=== PATIENT | male | born 1975 | race Caucasian/White ===

== ENCOUNTER 2019-10-26 22:36 | Emergency (ER) | payer MEDICAID, SELFPAY ==
[2019-10-26 22:50] VITALS: BP 110/92; PULSE 52; RESP 18; TEMP 36.6; O2SAT 100; BMI 27.1
--- NOTE | 2019-10-26 22:52 | ECG_ITS ---
Measurements Intervals [place] Rate: 52 P: 63 MA: 146 QRS: 70 QRSD: 109 T: 59 QT: 405 QTc: 379 SINUS BRADYCARDIA Compared to ECG 04/18/2017 12:33:39 Sinus arrhythmia no longer present Electronically Signed On 10-31-2019 13:42:22 CDT by Mercedes Yanez M.D. [email or web address]
--- NOTE | 2019-10-26 22:52 | XR_ITS ---
WS: [id number] PORTABLE CHEST HISTORY: CP COMPARISON: 04/18/2017 Lungs are clear and well expanded. No pleural effusion or pneumothorax. Cardiac size: Normal. Mediastinum/Aorta: Normal mediastinum. No osseous abnormality seen. XR/XR chest 1V portable [id number] IMPRESSION: Unremarkable portable chest.
--- NOTE | 2019-10-26 22:54 | ED_ITS ---
HPI - Chest Pain General: Chief Complaint: Chest Pain Stated Complaint: chest pain Time Seen by Provider: 10/26/19 22:44 History of Present Illness: HPI narrative: Patient arrived via ambulance from the [facility] with complaint of chest pain that was sharp started in his left chest went up his neck and down his left arm. Patient said it was about 1945 when it started. He received 2 nitro in the ambulance and oxygen he said his pain is pretty much gone now. He likens it to his past for heart attacks from cocaine use he says. MD complaint: chest pain and chest heaviness Pertinent past history: prior RI (Cocaine use per patient) Onset (ago): hour(s) Timing of current episode: episodic and now resolved Prior episodes: Yes Onset: during rest Pain location: left chest Pain radiation: left arm and neck Severity: mild Quality: heaviness and sharp Relieving factors: nitroglycerin Exacerbating factors: nothing Associated symptoms: Reports vomiting (X1); Deny dyspnea or fever(s) Review of Systems Const: Denies: fever, chills or body aches Eyes: Denies: change in vision or blurry vision ENMT: Denies: throat pain or nasal congestion Card: Reports: chest pain; Denies: shortness of breath on exertion Resp: Denies: shortness of breath, productive cough or non-productive cough GI: Reports: vomiting (X1) : Denies: difficulty urinating Musc: Denies: extremity pain Skin/Breast: Denies: rash Neuro: Denies: headache Psych: Denies: anxiety or depression Eduardo/Lymph: Denies: easy bruising PFS ED PFSH: Medical History (Updated 10/27/19 @ 00:02 by SUZY Morales) Bipolar disorder Chronic back pain Chronic post-traumatic stress disorder (PTSD) 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 Hypertension Surgical History (Updated 10/08/19 @ 14:24 by RUKHSANA CooperC) History of left heart catheterization July 2019 in [place] History of tonsillectomy History of umbilical hernia repair Family History (Updated 10/08/19 @ 13:52 by SHEN Richard) Other Cancer Dementia Diabetes Heart disease Hypertension Stroke Social History (Updated 10/08/19 @ 13:53 by SHEN Richard) Smoking and tobacco status: never smoked Second hand smoke exposure: No Smoking risk assessment/counseling performed?: No Alcohol intake: former Desire information about alcohol rehabilitation?: No Counseling given: No Desire information about substance/drug rehabilitation?: No Counseling given: No Adopted: No Caregiver/support person: Yes (nursing home) Lives independently: No Household members: other Details: nursing home Marital status: Number of children: 0 service: No Current occupational status: unemployed Current occupational exposures/hazards: No Pets and animals: No History of recent travel: No Current gender identity: Male Physical Exam Const: COMMON NORMALS: no apparent distress, average body habitus and oriented x3 HENMT: COMMON NORMALS: normocephalic HEAD & SCALP: normal to inspection and normocephalic FACE & SINUS: normal facial exam Eye: COMMON NORMALS: conjunctivae normal GENERAL EYE: normal appearance of both eyes CONJUNCTIVA: Yes conjunctivae normal Neck/C-Spine: COMMON NORMALS: no JVD Chest: COMMONS NORMALS: inspection of chest normal Resp: COMMON NORMALS: normal respiratory effort and clear to auscultation bilaterally AUSCULTATION: clear to auscultation bilaterally Cardio: COMMON NORMALS: no JVD, regular rate and regular rhythm RATE: regular rate RHYTHM: regular rhythm GI: COMMON NORMALS: normal to inspection, nondistended, normoactive bowel sounds Extremity: COMMON NORMALS: normal to inspection and full ROM Neuro: COMMON NORMALS: oriented x3 Course Vital Signs: Vital signs: Vital Signs Temperature 97.8 F 10/26/19 22:50 Pulse Rate 52 L 10/26/19 22:50 Respiratory Rate 18 10/26/19 22:50 Blood Pressure 110/92 10/26/19 22:50 Pulse Oximetry 100 10/26/19 22:50 MDM - Chest Pain MDM Narrative: Medical decision making narrative: Patient is making decision to leave AGAINST MEDICAL ADVICE. It was explained to him the risk of of leaving before given his second troponin test. This discussed chest pain shortness of breath cardiac events. Patient states that he feels not his heart that he feels good leaving and does want to leave and go home. Patient signed AMA form with nurse at side as witness. Patient will is provided with all necessary information to make this decision. Lab Data: Labs: Lab Results 10/26/19 10/26/19 10/26/19 Range/Units 23:14 23:14 23:14 WBC 7.1 (4.0-10.0) 10^3/ uL RBC 5.12 (4.1-5.3) 10^6/u L Hgb 15.2 (11.7-16.6) g/dL Hct 45.3 (42.0-52.0) % MCV 88.5 (80-94) fL MCH 29.7 (28.0-34.0) pg MCHC 33.6 (30.0-36.0) g/dL RDW 11.8 L (12.1-15.1) % Plt Count 279 (130-400) 10^3/c mm MPV 9.4 (7.4-10.4) fL Neut % (Auto) 55.4 % Lymph % (Auto) 33.1 % [place] % (Auto) 8.5 % Eos % (Auto) 2.2 % Baso % (Auto) 0.7 % Neut # (Auto) 4.0 (1.8-7.7) 10^3/u L Lymph # (Auto) 2.4 (0.8-4.8) 10^3/u L [place] # (Auto) 0.6 (0.2-0.9) 10^3/u L Eos # (Auto) 0.2 (0.0-0.8) 10^3/u L Baso # (Auto) 0.1 (0.0-0.1) 10^3/u L Nucleated RBC % (a uto) 1.3 % Nucleated RBCs # 0.1 /100WBC PT 12.60 (10.5-13.3) SECO NDS INR 0.92 (0.8-1.2) Sodium (136-145) mmol/L Potassium (3.5-5.1) mmol/L Chloride (98-107) mmol/L Carbon Dioxide (22-29) mmol/L Anion Gap (5-19) BUN (6-20) mg/dL Creatinine (0.7-1.2) mg/dL GFR Calculation (90-130) mL/min Glucose (65-115) mg/dL Calculated Osmolal ity (285-295) mOsm/k g Calcium (8.5-10.5) mg/dL Total Bilirubin (0.15-1.2) mg/dL AST (0-40) U/L ALT (0-41) U/L Alkaline Phosphata se (40-130) IU/L Troponin T Baselin e 6 (0-15) ng/mL Total Protein (6.6-8.7) g/dL Albumin (3.5-5.2) g/dL Globulin (1.3-4.6) g/dL 10/26/19 Range/Units 23:14 WBC (4.0-10.0) 10^3/ uL RBC (4.1-5.3) 10^6/u L Hgb (11.7-16.6) g/dL Hct (42.0-52.0) % MCV (80-94) fL MCH (28.0-34.0) pg MCHC (30.0-36.0) g/dL RDW (12.1-15.1) % Plt Count (130-400) 10^3/c mm MPV (7.4-10.4) fL Neut % (Auto) % Lymph % (Auto) % [place] % (Auto) % Eos % (Auto) % Baso % (Auto) % Neut # (Auto) (1.8-7.7) 10^3/u L Lymph # (Auto) (0.8-4.8) 10^3/u L [place] # (Auto) (0.2-0.9) 10^3/u L Eos # (Auto) (0.0-0.8) 10^3/u L Baso # (Auto) (0.0-0.1) 10^3/u L Nucleated RBC % (a uto) % Nucleated RBCs # /100WBC PT (10.5-13.3) SECO NDS INR (0.8-1.2) Sodium 142 (136-145) mmol/L Potassium 4.4 (3.5-5.1) mmol/L Chloride 103 (98-107) mmol/L Carbon Dioxide 30 H (22-29) mmol/L Anion Gap 13.4 (5-19) BUN 12 (6-20) mg/dL Creatinine 1.0 (0.7-1.2) mg/dL GFR Calculation 80.4 L (90-130) mL/min Glucose 80 (65-115) mg/dL Calculated Osmolal ity 289 (285-295) mOsm/k g Calcium 9.8 (8.5-10.5) mg/dL Total Bilirubin 0.3 (0.15-1.2) mg/dL AST 32 (0-40) U/L ALT 43 H (0-41) U/L Alkaline Phosphata se 108 (40-130) IU/L Troponin T Baselin e (0-15) ng/mL Total Protein 7.3 (6.6-8.7) g/dL Albumin 4.7 (3.5-5.2) g/dL Globulin 2.6 (1.3-4.6) g/dL Discharge Plan Discharge Patient Disposition: Left Against Medical Advice Clinical Impression: Atypical chest pain Condition: Stable Prescriptions: No Action aspirin [Aspir-Low] 81 mg tablet,delayed release (DR/EC) 81 mg PO DAILY RF: 0 atorvastatin 80 mg tablet 80 mg PO DAILY Qty: 30 RF: 2 metoprolol tartrate 25 mg tablet 25 mg PO BID Qty: 60 RF: 2 oxcarbazepine [Trileptal] 300 mg tablet 300 mg PO BID Qty: 60 RF: 2 gabapentin 300 mg capsule 300 mg PO TID Qty: 90 RF: 2 nitroglycerin 2.5 mg capsule, extended release 2.5 mg PO Q12H Qty: 60 RF: 2 Discharge Orders: Discharge Order (Routine); Ordered 10/27/19 Ordered By: Homero Griffin Referrals: Jamin Jauregui MD [Family Provider] - Discharge Diet: Usual diet Discharge Activity: Resume usual activity Patient Instructions: Chest Pain (ED) Activity Restrictions/Additional Instructions: Get establish primary care here and get a referral to doormaker for follow- up. Any chest pain shortness of breath heaviness are similar symptoms in the past you have had with your post RI heart attacks return here or follow-up at your nearest emergency department take medicine as you are prescribed Coding Level of Care Code ED Underlay Stitcher for John Fwlori Exam Comprehensive
[2019-10-26 23:20] LABS: Basophils # 0.1 10^3/uL (0.0-0.1); Basophils % 0.7 %; Eosinophils # 0.2 10^3/uL (0.0-0.8); Eosinophils % 2.2 %; Hematocrit 45.3 % (42.0-52.0); Hemoglobin 15.2 g/dL (11.7-16.6); Lymphocytes # 2.4 10^3/uL (0.8-4.8); Lymphocytes % 33.1 %; Mean Corpuscular HGB Conc 33.6 g/dL (30.0-36.0); Mean Corpuscular Hemoglobin 29.7 pg (28.0-34.0); Mean Corpuscular Volume 88.5 fL (80-94); Mean Platelet Volume 9.4 fL (7.4-10.4); Monocytes # 0.6 10^3/uL (0.2-0.9); Monocytes % 8.5 %; Neutrophils % 55.4 %; Nucleated Red Blood Cells # 0.1 /100WBC; Nucleated Red Blood Cells % 1.3 %; Platelet Count 279 10^3/cmm (130-400); Red Blood Count 5.12 10^6/uL (4.1-5.3); Red Cell Distribution Width 11.8 % (12.1-15.1); White Blood Count 7.1 10^3/uL (4.0-10.0)
[2019-10-26 23:47] LABS: Alanine Aminotransferase 43 U/L (0-41); Albumin Level 4.7 g/dL (3.5-5.2); Alkaline Phosphatase 108 IU/L (40-130); Anion Gap 13.4 (5-19); Aspartate Amino Transferase 32 U/L (0-40); Blood Urea Nitrogen 12 mg/dL (6-20); Calcium 9.8 mg/dL (8.5-10.5); Carbon Dioxide 30 mmol/L (22-29); Chloride 103 mmol/L (98-107); Globulin 2.6 g/dL (1.3-4.6); Glomerular Filtration Rate 80.4 mL/min (90-130); Glucose 80 mg/dL (65-115); Osmolality Calculated 289 mOsm/kg (285-295); Potassium 4.4 mmol/L (3.5-5.1); Sodium 142 mmol/L (136-145); Total Bilirubin 0.3 mg/dL (0.15-1.2); Total Protein 7.3 g/dL (6.6-8.7); Troponin(5th) Baseline 6 ng/mL (0-15)
[2019-10-26 23:54] LABS: INR 0.92 (0.8-1.2)
[2019-10-27 00:16] VITALS: BP 120/75; PULSE 55; RESP 16; O2SAT 99
--- NOTE | 2019-10-27 00:24 | PC.NURSE ---
RN reviewed and agrees with assessment
== END 2019-10-27 00:16 | disposition left against medical advice (07) ==
PROVIDERS: Emergency Provider Nurse Practitioner Family; Family Provider Family Medicine
DX: R07.89 Other chest pain (principal); I10 Essential (primary) hypertension; I25.2 Old myocardial infarction; Z79.82 Long term (current) use of aspirin; Z53.29 Procedure and treatment not carried out because of patient's decision for other reasons
CPT/HCPCS: 12345; 71045; 80053; 84484; 85025; 85610; 93005; 99282; 99283

== ENCOUNTER → 2019-11-14 08:07 | Outpatient (BNVA) | payer MEDICAID, SELFPAY | PROVIDERS: Family Provider Family Medicine; Visit Provider Counselor Mental Health | DX: F43.12 Post-traumatic stress disorder, chronic (principal); F31.9 Bipolar disorder, unspecified | CPT/HCPCS: 90834 ==

== ENCOUNTER → 2019-11-21 08:36 | Outpatient (BNVA) | payer MEDICAID, SELFPAY | PROVIDERS: Family Provider Family Medicine; Visit Provider Counselor Mental Health | DX: F43.12 Post-traumatic stress disorder, chronic (principal); F41.1 Generalized anxiety disorder | CPT/HCPCS: 90834 ==

== ENCOUNTER → 2019-12-04 12:22 | Outpatient (BNVA) | payer MEDICAID, SELFPAY | PROVIDERS: Family Provider Family Medicine; Visit Provider Psychiatry & Neurology Psychiatry | DX: F43.12 Post-traumatic stress disorder, chronic (principal); F31.9 Bipolar disorder, unspecified; E63.9 Nutritional deficiency, unspecified; F34.9 Persistent mood [affective] disorder, unspecified; F15.11 Other stimulant abuse, in remission; Z87.820 Personal history of traumatic brain injury | CPT/HCPCS: 99215 ==

== ENCOUNTER → 2019-12-17 07:50 | Outpatient (BNVA) | payer MEDICAID, SELFPAY | PROVIDERS: Family Provider Family Medicine; Visit Provider Psychiatry & Neurology Psychiatry | DX: Z71.9 Counseling, unspecified (principal); F41.1 Generalized anxiety disorder | CPT/HCPCS: 99211; G0463 ==

== ENCOUNTER → 2020-05-27 08:34 | Outpatient (BNVA) | payer MEDICAID, SELFPAY | PROVIDERS: Family Provider Family Medicine; Visit Provider Counselor Mental Health | DX: F31.32 Bipolar disorder, current episode depressed, moderate (principal) | CPT/HCPCS: 90832 ==

== ENCOUNTER → 2020-06-01 09:09 | Outpatient (BNVA) | payer MEDICAID, SELFPAY | PROVIDERS: Family Provider Family Medicine; Visit Provider Nurse Practitioner Psychiatric/Mental Health | DX: F34.9 Persistent mood [affective] disorder, unspecified (principal); F43.12 Post-traumatic stress disorder, chronic; F15.11 Other stimulant abuse, in remission; F33.1 Major depressive disorder, recurrent, moderate | CPT/HCPCS: 99212 ==

== ENCOUNTER 2020-08-02 19:07 | Emergency (ER) | payer MEDICAID, SELFPAY ==
--- NOTE | 2020-08-02 19:11 | XRR_ITS ---
PROCEDURE INFORMATION: Exam: XR Chest, 1 View Exam date and time: 08/02/2020 7:41 PM Age: 45 years old Clinical indication: Cough and shortness of breath TECHNIQUE: Imaging protocol: XR of the chest Views: 1 view. COMPARISON: CR XR chest 1V portable [id number] 10/26/2019 11:13 PM FINDINGS: Lungs: No acute airspace disease. Pleural space: No pleural effusion. Heart/Mediastinum: Epicardial fat, without cardiomegaly. Bones/joints: Unremarkable. XR/XR chest 1V portable [id number] IMPRESSION: No acute airspace or pleural disease.
[2020-08-02 19:20] VITALS: BP 135/80; PULSE 71; RESP 18; TEMP 36.7; O2SAT 98; BMI 28.1
--- NOTE | 2020-08-02 19:42 | ED_ITS ---
HPI - COVID General: Chief Complaint: COVID symptoms Stated Complaint: cough/sob/nausea/covid symptoms Time Seen by Provider: 08/02/20 19:30 Source: patient Mode of arrival: ambulatory Limitations: no limitations Triage information: Has fever, cough or shortness of breath . No known COVID + exposure last 14 days History of Present Illness: HPI Narrative: 45-year-old male states over the last 10 days he has had cough body aches some chills. He denies any fevers. Patient states he was exposed to Covid at work. Patient is in no distress here and denies any shortness of breath. Denies any weakness he has had some nausea. COVID 19 common symptoms: positive chills, non-productive cough and body aches; negative headache(s), throat pain, nausea, vomiting or diarrhea COVID 19 other sytmptoms: negative chest pain COVID Results: No Data to Display Review of Systems Const: Reports: chills and body aches Eyes: Denies: blurry vision or eye discomfort ENMT: Denies: throat pain or dental pain Card: Denies: chest pain Resp: Reports: non-productive cough GI: Denies: abdominal pain, nausea, vomiting or diarrhea : Denies: dysuria Musc: Denies: neck pain or back pain Skin/Breast: Denies: rash Neuro: Denies: headache(s) Psych: Denies: depression Eduardo/Lymph: Denies: easy bruising All/Imm: Denies: urticaria PFSH ED PFSH: Medical History (Updated 08/02/20 @ 19:42 by Enoc Dumont MD) Atypical chest pain Bipolar disorder Chronic back pain Chronic post-traumatic stress disorder (PTSD) 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 Hypertension Surgical History History of left heart catheterization July 2019 in [place] History of tonsillectomy History of umbilical hernia repair Family History Other Cancer Dementia Diabetes Heart disease Hypertension Stroke Social History (Updated 12/02/19 @ 11:15 by Marii Long RN) Smoking and tobacco status: never smoked Second hand smoke exposure: No Smoking risk assessment/counseling performed?: No Alcohol intake: former Desire information about alcohol rehabilitation?: No Counseling given: No Desire information about substance/drug rehabilitation?: No Counseling given: No Adopted: No Caregiver/support person: Yes (skilled nursing) Lives independently: No Household members: other Details: skilled nursing Marital status: Number of children: 0 service: No Current occupational status: unemployed Current occupational exposures/hazards: No Pets and animals: No History of recent travel: No Current gender identity: Male Physical Exam Const: COMMON NORMALS: no acute distress, patient oriented x3 and healthy appearing HENMT: COMMON NORMALS: normocephalic and atraumatic HEAD & SCALP: normocephalic and atraumatic Eye: COMMON NORMALS: Equal, round and reactive pupils present and EOMs intact bilaterally PUPIL: Yes Equal, round and reactive pupils present Neck/C-Spine: COMMON NORMALS: full ROM and supple Chest: COMMONS NORMALS: normal inspection of the chest and normal palpation of entire chest wall Resp: COMMON NORMALS: normal respiratory effort, No retractions, No use of accessory muscles and clear to auscultation bilaterally AUSCULTATION: clear to auscultation bilaterally Cardio: COMMON NORMALS: regular rate, regular rhythm and No murmurs present (Cardio) RATE: regular rate RHYTHM: regular rhythm GI: COMMON NORMALS: Normal to inspection, nondistended, normoactive bowel sounds present, Soft to palpation, non-tender and no masses PALPATION: Yes Soft to palpation Extremity: COMMON NORMALS: normal to inspection and full ROM Neuro: COMMON NORMALS: patient oriented x3, moves all extremities and no focal motor deficits Psych: COMMON NORMALS: mental status grossly normal, Normal thought process present and cooperative THOUGHT PROCESS: Normal thought process present Skin: COMMON NORMALS: no rashes or lesions noted and no wounds GENERAL SKIN EXAM: no rashes or lesions noted Course Vital Signs: Vital signs: Vital Signs Temperature 98.0 F 08/02/20 19:20 Pulse Rate 71 08/02/20 19:20 Respiratory Rate 18 08/02/20 19:20 Blood Pressure 135/80 08/02/20 19:20 Pulse Oximetry 98 08/02/20 19:20 MDM - COVID MDM Narrative: Medical decision making narrative: Patient presents here with Covid-like symptoms and he is concerned he may have Covid. X-ray here shows no signs of pneumonia he has no signs of serious illness and vital signs are normal. We will do a Covid swab and patient is stable for discharge. He is to return if worsening. He understands and agrees to plan. Imaging Data: CXR: Attestation: I personally reviewed and interpreted this imaging study as follows: My impression: No acute abnormality COVID Results: No Data to Display Discharge Plan Discharge Patient Disposition: Home Clinical Impression: Suspected severe acute respiratory syndrome coronavirus 2 (SARS-CoV-2) infection, Suspected 2019-nCoV infection Condition: Stable Prescriptions: No Action isosorbide mononitrate 30 mg tablet extended release 24 hr 30 mg PO DAILY 30 Days Qty: 30 RF: 3 mirtazapine [Remeron] 15 mg tablet 7.5 mg PO .HS Qty: 15 RF: 0 hydroxyzine pamoate 25 mg capsule 25 mg PO BID PRN (Reason: anxiety) Qty: 60 RF: 0 lithium carbonate 150 mg capsule 450 mg PO .q hs Qty: 90 RF: 0 metoprolol tartrate 25 mg tablet 25 mg PO BID Qty: 60 RF: 2 aspirin [Adult Aspirin Regimen] 81 mg tablet,delayed release (DR/EC) 81 mg PO DAILY RF: 0 atorvastatin 20 mg tablet 20 mg PO DAILY RF: 0 pantoprazole 40 mg tablet,delayed release (DR/EC) 40 mg PO DAILY RF: 0 lisinopril [Zestril] 2.5 mg tablet 2.5 mg PO DAILY RF: 0 levothyroxine 50 mcg capsule 50 mcg PO DAILY RF: 0 sofosbuvir-velpatasvir [Epclusa] 400-100 mg tablet 1 tab PO DAILY 84 Days Qty: 28 RF: 2 Discharge Orders: Discharge ED (Routine); Ordered 08/02/20 Ordered By: Enoc Dumont Referrals: Jamin Jauregui MD [Primary Care Provider] - 1-3 days Discharge Diet: Advance as tolerated Discharge Activity: Resume usual activity Patient Instructions: Upper Respiratory Infection (ED) Coding Level of Care Code ED Political Anthropologist for John Jacobs
[2020-08-02 20:23] VITALS: O2SAT 98
[2020-08-03 17:04] LABS: Coronavirus Test Green County DETECTED
== END 2020-08-02 20:20 | disposition home or self-care (01) ==
PROVIDERS: Emergency Provider Emergency Medicine; PCP Family Medicine
DX: Z79.82 Long term (current) use of aspirin (principal); I10 Essential (primary) hypertension; U07.1 COVID-19
CPT/HCPCS: 12345; 71045; 87635; 99281; 99283

== ENCOUNTER 2020-09-24 08:13 | Outpatient (CLI) | payer MEDICAID, SELFPAY ==
--- NOTE | 2020-09-24 08:19 | FL_ITS ---
WS: [id number] ESOPHAGRAM WITH FLUOROSCOPY HISTORY: NONTOXIC MULTINODULAR GOITER COMPARISON: None available. FLUOROSCOPY TIME: 0.7 minutes. Esophagus and swallowing function: Barium was swallowed without difficulty. No strictures or signific ant mucosal abnormalities are identified within the esophagus. There is very mild dysmotility in the mid to distal esophagus. No delay in emptying of esophagus. No hernia or reflux. No aspiration. There is mild encroachment upon the posterior esophagus by small vertebral body osteophytes. Gastroesophageal reflux: None. Hiatal hernia: No hiatal hernia. FL/FL barium swallow [id number] IMPRESSION: 1. No strictures or significant mucosal lesions are noted within the esophagus . 2. No aspiration.
--- NOTE | 2020-09-24 08:19 | CT_ITS ---
WS: [id number] CT NECK WITH CONTRAST HISTORY: NONTOXIC MULTINODULAR GOITER TECHNIQUE: Contiguous 5 mm axial images are performed through the neck with intravenous contrast. Sag ittal and coronal reformats are also submitted. All CT scans at [facility] use at least o ne of these dose optimization techniques: automated exposure control; mA and/or kV adjustment per pat ient size (includes targeted exams where dose is matched to clinical indication); or iterative recons truction. CONTRAST: CONTRAST: Omnipaque 300; 95 mL IV. DLP: 2068.23 mGycm COMPARISON: None available. There is moderate thickening and nodularity along the anterior parapharyngeal mucosa just above the l evel of the epiglottic free margin. There is mild extension of the parapharyngeal lobulated soft tiss ue extending along the RIGHT epiglottic free margin. Seen only on the breath-hold images is a 5 mm no dule in the LEFT vallecula. No additional abnormalities are noted within the larynx. Torus tubarius and fossa of Rosenmuller and parapharyngeal fat are normal. Small bilateral cervical chain lymph nodes. Numerous cervical chain lymph nodes are identified. These lymph nodes are not enlarged. The largest measuring 8 mm at level 2. No thyroid enlargement. 5 mm mid RIGHT thyroid nodule. Parotid glands and submandibular glands are ne gative. Mild degenerative disc disease at C5-6. Visualized portions of the skull base demonstrate no abnormalities. Orbits and globes are within norm al limits. No soft tissue masses. Visualized paranasal sinuses and mastoid air cells are normal. Lung apices are clear. CT/CT neck w con* [id number] IMPRESSION: 1. Nodular lobulated soft tissue in the anterior parapharyngeal mucosal space extending along the LEFT free edge of the epiglottis is more than typically see n. Small papillomas are not excluded. Direct visualization recommended. 2. Seen only on the breath hold image is a 5 mm nodule in the LEFT vallecula. This should be further evaluated on direct visualization. 3. Subcentimeter RIGHT thyroid nodule. 4. No adenopathy. Numerous small cervical chain lymph nodes are subcentimeter.
[2020-09-24] MEDS: iohexol 300 mg/mL 100 mL Btl IV (08:43)
== END 2020-09-24 08:14 | disposition home or self-care (01) ==
LOC: RADWPI 08:17
PROVIDERS: PCP Nurse Practitioner Family; Visit Provider Specialist
DX: E04.2 Nontoxic multinodular goiter (principal); E04.1 Nontoxic single thyroid nodule
CPT/HCPCS: 70491; 74220; Q9967

== ENCOUNTER → 2020-09-27 08:00 | Outpatient (BNVA) | payer MEDICAID, SELFPAY | PROVIDERS: PCP Nurse Practitioner Family; Visit Provider Nurse Practitioner Psychiatric/Mental Health | DX: Z03.89 Encounter for observation for other suspected diseases and conditions ruled out (principal); Z79.899 Other long term (current) drug therapy | CPT/HCPCS: 99213 ==

== ENCOUNTER → 2020-09-28 09:36 | Outpatient (BNVA) | payer MEDICAID, SELFPAY | PROVIDERS: PCP Nurse Practitioner Family; Visit Provider Psychiatry & Neurology Psychiatry | DX: Z79.899 Other long term (current) drug therapy (principal); Z03.89 Encounter for observation for other suspected diseases and conditions ruled out | CPT/HCPCS: 80053; 84439; 84443; 84481; 85025 ==

== ENCOUNTER → 2020-09-29 15:39 | Outpatient (BNVA) | payer MEDICAID, SELFPAY | PROVIDERS: PCP Nurse Practitioner Family; Visit Provider Internal Medicine | DX: B18.2 Chronic viral hepatitis C (principal) | CPT/HCPCS: 87522 ==

== ENCOUNTER → 2020-10-04 09:28 | Outpatient (BNVA) | payer MEDICAID, SELFPAY | PROVIDERS: PCP Nurse Practitioner Family; Visit Provider Counselor Mental Health | DX: F31.32 Bipolar disorder, current episode depressed, moderate (principal); F15.11 Other stimulant abuse, in remission | CPT/HCPCS: 90832 ==

== ENCOUNTER → 2020-10-26 16:03 | Outpatient (BNVA) | payer MEDICAID, SELFPAY | PROVIDERS: PCP Nurse Practitioner Family; Visit Provider Counselor Mental Health | DX: F31.32 Bipolar disorder, current episode depressed, moderate (principal); F15.11 Other stimulant abuse, in remission | CPT/HCPCS: 90834 ==

== ENCOUNTER → 2020-11-08 07:45 | Outpatient (BNVA) | payer MEDICAID, SELFPAY | PROVIDERS: PCP Nurse Practitioner Family; Visit Provider Nurse Practitioner Psychiatric/Mental Health | DX: F34.9 Persistent mood [affective] disorder, unspecified (principal); F43.12 Post-traumatic stress disorder, chronic; F15.11 Other stimulant abuse, in remission; Z51.81 Encounter for therapeutic drug level monitoring; B18.2 Chronic viral hepatitis C | CPT/HCPCS: 99213 ==

== ENCOUNTER → 2020-11-09 10:17 | Outpatient (BNVA) | payer MEDICAID, SELFPAY | PROVIDERS: PCP Nurse Practitioner Family; Visit Provider Counselor Mental Health | DX: F31.32 Bipolar disorder, current episode depressed, moderate (principal); F15.11 Other stimulant abuse, in remission | CPT/HCPCS: 90834 ==

== ENCOUNTER 2020-11-18 17:42 | Emergency (ER) | payer MEDICAID, SELFPAY ==
[2020-11-18 17:59] VITALS: BP 150/81; PULSE 70; RESP 18; TEMP 36.3; O2SAT 96; BMI 28.6
--- NOTE | 2020-11-18 18:09 | ED_ITS ---
HPI - Back Pain/Injury General: Chief Complaint: Back Pain/Injury Stated Complaint: BACK INJURY Time Seen by Provider: 11/18/20 18:07 History of Present Illness: HPI Narrative: Patient is a 45-year-old male comes to the ED with back pain. He has a history of chronic back pain. Patient says that he was working on an engine earlier today and was pulling on some bolts and caused him to strain his back. Patient took four 500 mg Omar back meds after injury and lying down to rest. He says when he woke up he was having pain that starts in lower back and then radiates down his left leg. Patient denies any loss of bowel or bladder control, pelvic anesthesia or weakness to lower extremities. Associated symptoms: Deny abdominal pain, chills, dysuria, fatigue, fever(s), hematuria, nausea or vomiting Review of Systems Const: Denies: fever(s), chills or fatigue Eyes: Denies: change in vision or eye discomfort ENMT: Denies: throat pain, odynophagia, nasal discharge or nasal congestion Card: Denies: chest pain, palpitations, edema, swelling of feet/ankles, dyspnea on exertion or orthopnea Resp: Denies: dyspnea, productive cough or non-productive cough GI: Denies: abdominal pain, nausea, vomiting, diarrhea, constipation or hematochezia : Denies: flank pain, difficulty urinating, dysuria or hematuria Musc: Reports: back pain; Denies: neck pain or extremity swelling Skin/Breast: Denies: rash or new lesions Neuro: Denies: headache(s), numbness in extremities or weakness in extremities PFS ED PFSH: Medical History Atypical chest pain Bipolar disorder Chronic back pain Chronic post-traumatic stress disorder (PTSD) 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 Hypertension Surgical History History of left heart catheterization July 2019 in [place] History of tonsillectomy History of umbilical hernia repair Family History Other Cancer Dementia Diabetes Heart disease Hypertension Stroke Social History Smoking and tobacco status: never smoked Second hand smoke exposure: No Smoking risk assessment/counseling performed?: No Alcohol intake: former Desire information about alcohol rehabilitation?: No Counseling given: No Desire information about substance/drug rehabilitation?: No Counseling given: No Adopted: No Caregiver/support person: Yes (snf) Lives independently: No Household members: other Details: snf Marital status: Number of children: 0 service: No Current occupational status: unemployed Current occupational exposures/hazards: No Pets and animals: No History of recent travel: No Current gender identity: Male Physical Exam Const: COMMON NORMALS: no acute distress, patient oriented x3, healthy appearing and alert GENERAL APPEARANCE: cooperative and comfortable HENMT: COMMON NORMALS: normocephalic HEAD & SCALP: normocephalic MOUTH: Normal oral and palatal mucosa present THROAT: posterior oropharynx normal and uvula midline Neck/C-Spine: COMMON NORMALS: supple GENERAL: Yes normal visual inspection Resp: COMMON NORMALS: normal respiratory effort, No retractions, No use of accessory muscles and clear to auscultation bilaterally AUSCULTATION: clear to auscultation bilaterally Cardio: COMMON NORMALS: regular rate, regular rhythm, S1 normal heart sound present, S2 normal heart sound present, No gallops present (Cardio), No clicks present (Cardio), No murmurs present (Cardio) and Peripheral pulses 2+ throughout RATE: regular rate RHYTHM: regular rhythm HEART SOUNDS: S1 normal heart sound present and S2 normal heart sound present PERIPHERAL PULSES: Peripheral pulses 2+ throughout GI: COMMON NORMALS: Normal to inspection, nondistended, normoactive bowel sounds present, Soft to palpation, non-tender and no masses PALPATION: Yes Soft to palpation : COMMON NORMALS: Yes no CVA tenderness BLADDER/KIDNEY EXAM: Yes no CVA tenderness Back/Pelvis: COMMON NORMALS: no CVA tenderness LUMBAR SPINE/LOWER BACK: Yes pain with ROM, No lumbar spinal tenderness, Yes paraspinal muscle tenderness Lumbar paraspinal muscle tenderness: left and Yes straight leg raise positive left Extremity: COMMON NORMALS: normal to inspection Neuro: COMMON NORMALS: patient oriented x3 and moves all extremities SENSORIUM/ORIENTATION: Yes alert Skin: GENERAL SKIN EXAM: dry skin Course Vital Signs: Vital signs: Vital Signs Temperature 97.3 F L 11/18/20 17:59 Pulse Rate 69 04/22/21 18:50 Respiratory Rate 17 11/18/20 18:50 Blood Pressure 142/88 11/18/20 18:50 Pulse Oximetry 97 11/18/20 18:50 MDM - Back Pain/Injury MDM Narrative: Medical decision making narrative: Patient is a 45-year-old male comes to the ED with lower back pain that radiates down into left leg. Denies any cauda equina symptoms. Patient has left lumbar paraspinal muscle tenderness and a positive left straight leg test. While here in the ED patient was given a dose of hydrocodone, Norflex and Solu-Medrol. Patient diagnosed with left lumbar radiculopathy. Patient was discharged with a prescription for methocarbamol, ibuprofen 800 mg tablets and a Medrol Dosepak. He was told to follow-up with his PCP in 7 to 10 days for reevaluation. Rest and apply ice or heat on lower back to help with symptoms. Stretch lower back daily. Return to ED precautions given. Patient understood agree with plan. Discharge Plan Discharge Patient Disposition: Home Clinical Impression: Left lumbar radiculopathy Condition: Stable Prescriptions: New Medrol (Vin) 4 mg tablets,dose pack See Rx Instructions .ROUTE .COMPLEX Qty: 21 RF: 0 ibuprofen 800 mg tablet 800 mg PO Q8H PRN (Reason: pain) Qty: 30 RF: 0 methocarbamol 750 mg tablet 750 mg PO Q8H Qty: 15 RF: 0 No Action isosorbide mononitrate 30 mg tablet extended release 24 hr 30 mg PO DAILY 30 Days Qty: 30 RF: 3 metoprolol tartrate 25 mg tablet 25 mg PO BID Qty: 60 RF: 2 mirtazapine [Remeron] 15 mg tablet 7.5 mg PO .HS Qty: 15 RF: 1 lithium carbonate 150 mg capsule 450 mg PO .q hs Qty: 90 RF: 1 hydroxyzine pamoate 25 mg capsule 25 mg PO BID PRN (Reason: anxiety) Qty: 60 RF: 1 sofosbuvir-velpatasvir [Epclusa] 400-100 mg tablet 1 tab PO DAILY 84 Days Qty: 28 RF: 2 Discharge Orders: Discharge ED (Routine); Ordered 11/18/20 Ordered By: Mack Koenig Referrals: Suzanne Espinoza FNP [Primary Care Provider] - Discharge Diet: Regular Discharge Activity: Increase activity as tolerated Patient Instructions: Lumbar Radiculopathy (ED) Activity Restrictions/Additional Instructions: Follow-up with medical provider as directed in 7 to 10 days for reevaluation. Rest, ice and apply heat on lower back to help with symptoms. Stretch lower back daily. Take medications as prescribed. Methocarbamol is a muscle relaxer and can cause some drowsiness so take at night before bed. Return to the ER or your medical provider if condition worsens. Please read and understand discharge instructions. If any questions, please ask. Coding Level of Care Code ED Wildlife Enforcement Major for John Fwd Exam Comprehensive
[2020-11-18] MEDS: HYDROcodone-acetaminophen 7.5-325 mg Tablet 1 TAB PO (18:39)
[2020-11-18] MEDS: orphenadrine 30 mg/mL Inj 2 mL 60 MG IM (18:43)
[2020-11-18 18:50] VITALS: BP 142/88; PULSE 69; RESP 17; O2SAT 97
== END 2020-11-18 18:51 | disposition home or self-care (01) ==
PROVIDERS: Emergency Provider Physician Assistant; PCP Nurse Practitioner Family
DX: M54.16 Radiculopathy, lumbar region (principal); I10 Essential (primary) hypertension
CPT/HCPCS: 96372; 99283; J2360; J2930

== ENCOUNTER → 2020-12-06 12:42 | Outpatient (BNVA) | payer MEDICAID, SELFPAY | PROVIDERS: PCP Nurse Practitioner Family; Visit Provider Psychiatry & Neurology Psychiatry | DX: F34.9 Persistent mood [affective] disorder, unspecified (principal); F32.9 Major depressive disorder, single episode, unspecified; F15.10 Other stimulant abuse, uncomplicated; F31.32 Bipolar disorder, current episode depressed, moderate | CPT/HCPCS: 90792 ==

== ENCOUNTER → 2020-12-15 08:42 | Outpatient (BNVA) | payer OTHER, SELFPAY | PROVIDERS: PCP Nurse Practitioner Family; Visit Provider Psychiatry & Neurology Psychiatry | DX: F31.32 Bipolar disorder, current episode depressed, moderate (principal); I10 Essential (primary) hypertension | CPT/HCPCS: 80061; 83036 ==

== ENCOUNTER → 2021-04-27 10:39 | Outpatient (BNVA) | payer MEDICAID, SELFPAY ==
[2020-12-21 14:15] VITALS: BP 136/85; BMI 31.0
== END ==
PROVIDERS: PCP Nurse Practitioner Family; Visit Provider Counselor Professional
DX: F31.32 Bipolar disorder, current episode depressed, moderate (principal); F15.11 Other stimulant abuse, in remission
CPT/HCPCS: 90847; 90834

== ENCOUNTER 2024-07-10 18:36 | Emergency (ER) | payer MEDICAID, SELFPAY ==
[2020-12-21 14:15] VITALS: BP 136/85; BMI 31.0
[2024-07-10 18:38] VITALS: BP 127/78; PULSE 69; RESP 18; TEMP 36.6; O2SAT 100; BMI 25.8
--- NOTE | 2024-07-10 18:44 | USR_ITS ---
PROCEDURE INFORMATION: Exam: US Scrotum and Artery or Vein of the Abdominal and/or Reproductive Organs, Limited Scrotum Exam date and time: 07/10/2024 7:36 PM Age: 49 years old Clinical indication: Scrotum pain; Prior surgery; Surgery date: 6+ months; Surgery type: Right orchiectomy 1980 C/O torsion; Additional info: Testicular pain, HX of a R orchidectomy TECHNIQUE: Imaging protocol: Real-time ultrasound of the scrotum. Real-time duplex ultrasound scan of the arterial or venous flow with linares scale, color Doppler flow and spectral waveform analysis with image documentation. Limited Duplex exam focused of the scrotum. Duplex exam was performed to evaluate for torsion and other vascular conditions. COMPARISON: No relevant prior studies available. FINDINGS: Right testicle: Known to be surgically absent. Left testicle: Normal waveforms on Doppler. No torsion. A measured complex microcystic appearing area measuring about 3 x 1 x 1 cm within the testicle appears to be tubular ectasia of the rete testis. This could be followed up. Epididymides: Right-sided surgically absent. Left-sided mildly heterogenous. Scrotum/soft tissues: Normal. US/US scrotum 18809 IMPRESSION: 1. No evidence of left-sided torsion. 2. Surgically absent right testicle. 3. A measured complex microcystic appearing area within the left testicle appears to be tubular ectasia of the rete testis. This could be followed up in 6-12 months with urology as well. 4. Left epididymis is heterogenous which may be due to normal variant, chronic infection, or acute epididymitis.
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
[2024-07-10 19:24] LABS: Bilirubin Urine Negative (Negative); Blood Urine Negative (Negative); Glucose Urine UA Negative (Normal); Ketones Urine Negative (Negative); Leukocyte Esterase Urine Negative (Negative); Nitrate Urine Negative (Negative); Protein Urine Negative (Negative); Specific Gravity, Urine 1.016 (1.005-1.030); Urine Appearance Clear (CLEAR); Urine Color Yellow (Yellow)
[2024-07-10 19:26] LABS: Add Urine Microscopic? YES; Bacteria Urine None Seen /hpf; RBC Urine 0-2 /hpf (0-2); Squamous Epithelial Cell Urine 0-5 /hpf (0-5); WBC Urine 0-5 /hpf (0-5)
[2024-07-10 20:31] VITALS: BP 114/78; PULSE 65; O2SAT 99
== END 2024-07-10 20:32 | disposition home or self-care (01) ==
PROVIDERS: Emergency Provider Physician Assistant; PCP Nurse Practitioner Family
DX: N50.812 Left testicular pain (principal); F17.210 Nicotine dependence, cigarettes, uncomplicated
CPT/HCPCS: 76870; 81001; 99284

== ENCOUNTER 2024-07-11 14:47 | Emergency (ER) | payer MEDICAID, SELFPAY ==
[2020-12-21 14:15] VITALS: BP 136/85; BMI 31.0
[2024-07-11] VITALS (7 sets, daily range): BP systolic 113–151; BP diastolic 70–102; PULSE 60–66; RESP 12–18; TEMP 36.4; O2SAT 97–100; BMI 25.0
--- NOTE | 2024-07-11 14:51 | XR_ITS ---
WS: [id number] Exam: XR chest 1V portable [id number] Date/Time of Exam: 07/11/2024 2:51 PM Reason For Exam: cp Comparison 08/02/2020. Lungs are clear and fully expanded. Normal cardiomediastinal silhouette and regional bony elements. N o pleural effusion. XR/XR chest 1V portable [id number] IMPRESSION: 1. Normal chest.
--- NOTE | 2024-07-11 14:51 | ECG_ITS ---
[facility] Date: 2024-07[facility]11 Pat Name: German Galvan Department: Room: Gender: Male Medical Practitioners: : 1975 Requested By: Enoc Dumont Order Number: [id number] Florentino MD: Roni Donohue M.D. Measurements Intervals [place] Rate: 56 P: 74 MD: 132 QRS: 83 QRSD: 106 T: 76 QT: 404 QTc: 391 Interpretive Statements SINUS BRADYCARDIA LOW QRS VOLTAGE IN PRECORDIAL LEADS [QRS DEFLECTION < 1.0 mV IN CHEST LEADS] Compared to ECG 10/26/2019 22:46:32 Low QRS voltage now present Electronically Signed On 07-11-2024 21:55:22 VALUE ANALYSIS COORDINATOR by Roni Donohue M.D. [email or web address]
--- NOTE | 2024-07-11 14:59 | ED_ITS ---
Documented by User: Enoc Dumont MD 07/11/24 17:37 HPI - Chest Pain 2 General: Chief Complaint: Chest Pain Stated Complaint: cp Time Seen by Provider: 07/11/24 14:50 Source: patient and EMS Mode of arrival: EMS Limitations: no limitations History of Present Illness: 49-year-old male is here from [facility] state s started having left-sided chest pain 2 hours ago. States pains been a pressure pain he denies any fevers denies any shortness of breath rates his pain a 3 out of 10 currently denies any worse or improving factors. Associated symptoms: Deny abdominal pain, dyspnea, fever(s), nausea or vomiting Related Data Home Medications Medication Instructions Recorded Confirmed cariprazine 4.5 mg capsule 4.5 mg PO QPM 07/11/24 07/11/24 (Vraylar) dicyclomine 20 mg tablet 20 mg PO TID 07/11/24 07/11/24 hydroxyzine pamoate 50 mg capsule 50 mg PO BID PRN Anxiety 07/11/24 07/11/24 metoprolol tartrate 25 mg tablet 25 mg PO BID 07/11/24 07/11/24 naproxen 500 mg tablet 500 mg PO BID 07/11/24 07/11/24 oxcarbazepine 150 mg tablet 300 mg PO BID 07/11/24 07/11/24 (Trileptal) trazodone 100 mg tablet 100 mg PO QPM PRN Sleep 07/11/24 07/11/24 Previous Rx's Medication Instructions Recorded cariprazine 1.5 mg capsule 1.5 mg PO DAILY 30 days #30 caps 12/06/20 (Vraylar) mirtazapine 15 mg tablet (Remeron) 7.5 mg (1/2 x 15 mg) PO .HS #15 12/06/20 tabs Allergies Allergy/AdvReac Type Severity Reaction Status Date / Time venom-wasp Allergy Severe shock and Verified 07/10/24 18:45 air shuts off avocado Allergy Unknown unknown Verified 07/10/24 18:45 strawberry Allergy Unknown unknown Verified 07/10/24 18:45 Review of Systems 2 Const: Denies: fever(s), chills, body aches or change in appetite ENMT: Denies: throat pain or dental pain Card: Reports: chest pain Resp: Denies: dyspnea GI: Denies: abdominal pain, nausea, vomiting or diarrhea Musc: Denies: neck pain or back pain Skin/Breast: Denies: rash Neuro: Denies: headache(s) PFSH ED 2 PFSH: Medical History Methamphetamine abuse MDD (major depressive disorder) Atypical chest pain Chronic back pain Hypertension Bipolar disorder 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 Chronic post-traumatic stress disorder (PTSD) Surgical History History of tonsillectomy History of umbilical hernia repair History of left heart catheterization July 2019 in [place] Family History Other Cancer Dementia Diabetes Heart disease Hypertension Stroke Social History Smoking and tobacco/nicotine status: current some day tobacco/nicotine user cigarettes [ Other cigarette details: 1-2 per month] Quit status (tobacco/nicotine): not considering quitting Second hand smoke exposure: Yes Alcohol intake: current Alcohol intake frequency: 0-2 Drinks per Day Alcohol type: beer Substance/Drug Use: former Date of last use: 07/2020 Adopted: Yes (Man that he calls his father adopted him when he was 6 years old) Caregiver/support person: No Lives independently: Yes Household members: significant other Housing: Other Details: [address] [place] Marital status: Number of children: 1 Number of grandchildren: 0 Highest education level completed: Associate Degree: Occupational, Technical, Vocational Program Education level details: Building [employer] service: No Current occupational status: employed 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) Pets and animals: Yes Pets & animals: cat(s) and dog(s) Leisure activites: fishing and other Leisure activities details: watch movies Sexually active: Yes Do you think of yourself as: Straight/Heterosexual Current gender identity: Male Analia/Sabianism: Spiritism Special analia needs: No Agree to transfusion: Yes Physical Exam 2 Const: COMMON NORMALS: no acute distress, patient oriented x3 and healthy appearing HENMT: COMMON NORMALS: normocephalic and atraumatic HEAD & SCALP: n ormocephalic and atraumatic Eye: COMMON NORMALS: conjunctivae normal CONJUNCTIVA: Yes conjunctivae normal Neck/C-Spine: COMMON NORMALS: full ROM and supple Chest: COMMONS NORMALS: normal inspection of the chest and normal palpation of entire chest wall Resp: COMMON NORMALS: normal respiratory effort, No retractions, No use of accessory muscles and clear to auscultation bilaterally AUSCULTATION: clear to auscultation bilaterally Cardio: COMMON NORMALS: regular rate, regular rhythm and No murmurs present (Cardio) RATE: regular rate RHYTHM: regular rhythm Extremity: COMMON NORMALS: normal to inspection and full ROM Neuro: COMMON NORMALS: patient oriented x3, moves all extremities and no focal motor deficits Psych: COMMON NORMALS: mental status grossly normal, Normal thought process present and cooperative THOUGHT PROCESS: Normal thought process present Skin: COMMON NORMALS: no rashes or lesions noted and no wounds GENERAL SKIN EXAM: no rashes or lesions noted Course 2 Vital Signs: Vital signs: Vital Signs Temperature 97.5 F L 07/11/24 14:50 Pulse Rate 66 07/11/24 19:45 Respiratory Rate 16 07/11/24 19:45 Blood Pressure 113/70 07/11/24 19:45 Pulse Oximetry 97 07/11/24 19:45 Oxygen Delivery Me thod Room Air 07/11/24 18:36 MDM - Chest Pain Medical Decision Making Patient presents for chest pain his initial troponin here is negative he has no signs of pulmonary embolism or dissection patient is pending his 2-hour troponin if normal likely be able to discharge back to [facility] care turned over to Dr. Mcleod Medical Records I reviewed the patient's medical records. Lab Data I reviewed the patient's lab results. 07/11/24 16:21 07/11/24 16:21 Radiology Impressions Chest X-Ray 07/11/24 14:51 IMPRESSION: 1. Normal chest. Laboratory Results WBC 5.08 10^3/uL (3.29-11.43) 07/11/24 16:21 RBC 4.81 10^6/uL (3.85-5.65) 07/11/24 16:21 Hgb 13.60 g/dL (11.27-16.99) 07/11/24 16:21 Hct 41.1 % (37-53) 07/11/24 16:21 MCV 85.4 fl (82-101) 07/11/24 16:21 MCH 28.3 pg (27-33) 07/11/24 16:21 MCHC 33.1 g/dL (30-55) 07/11/24 16:21 RDW 11.7 % (12.1-15.1) L 07/11/24 16:21 Plt Count 258 10^3/cmm (157-399) 07/11/24 16:21 MPV 8.9 fL (7.4-10.4) 07/11/24 16:21 Neut % (Auto) 58.0 % 07/11/24 16:21 Lymph % (Auto) 31.9 % 07/11/24 16:21 [place] % (Auto) 7.7 % 07/11/24 16:21 Eos % (Auto) 1.6 % 07/11/24 16:21 Baso % (Auto) 0.6 % 07/11/24 16:21 Neut # (Auto) 2.95 10^3/uL (1.8-7.7) 07/11/24 16:21 Lymph # (Auto) 1.6 10^3/uL (0.8-4.8) 07/11/24 16:21 [place] # (Auto) 0.4 10^3/uL (0.2-0.9) 07/11/24 16:21 Eos # (Auto) 0.1 10^3/uL (0.0-0.8) 07/11/24 16:21 Baso # (Auto) 0.0 10^3/uL (0.0-0.1) 07/11/24 16:21 Nucleated RBC % (auto) 0 % 07/11/24 16:21 Nucleated RBCs # 0.0 /100WBC 07/11/24 16:21 Sodium 140 mmol/L (136-145) 07/11/24 16:21 Potassium 4.9 mmol/L (3.5-5.1) 07/11/24 16:21 Chloride 106 mmol/L (98-107) 07/11/24 16:21 Carbon Dioxide 27 mmol/L (22-29) 07/11/24 16:21 Anion Gap 11.9 (5-19) 07/11/24 16:21 BUN 19 mg/dL (6-20) 07/11/24 16:21 Creatinine 0.9 mg/dL (0.7-1.2) 07/11/24 16:21 GFR Calculation 89.0 mL/min (90-130) L 07/11/24 16:21 Glucose 92 mg/dL (65-115) 07/11/24 16:21 Calculated Osmolality 292 mOsm/kg (285-295) 07/11/24 16:21 Calcium 9.2 mg/dL (8.5-10.5) 07/11/24 16:21 Total Bilirubin 0.3 mg/dL (0.15-1.2) 07/11/24 16:21 AST 15 U/L (0-40) 07/11/24 16:21 ALT 14 U/L (0-41) 07/11/24 16:21 Alkaline Phosphatase 84 U/L (40-130) 07/11/24 16:21 Troponin T Baseline < 6 ng/L (0-15) 07/11/24 16:21 Troponin T 120 Minute 6.00 ng/L (0-15) 07/11/24 18:06 Delta Troponin T 0.96253 ABS# (0-10) 07/11/24 18:06 Total Protein 5.9 g/dL (6.6-8.7) L 07/11/24 16:21 Albumin 4.1 g/dL (3.5-5.2) 07/11/24 16:21 Globulin 1.8 g/dL (1.3-4.6) 07/11/24 16:21 Lipase 26 U/L (13-60) 07/11/24 16:21 All radiology interpretation(s) finalized by discharge EKG Data EKG 1: I personally reviewed and interpreted this EKG as follows: EKG interpretation date: 07/11/24 EKG interpretation time: 14:54 Interpretation: sinus audra hr [address] elevation qrs 106 qtc 395 EKG 2: I personally reviewed and interpreted this EKG as follows: EKG interpretation date: 07/11/24 EKG interpretation time: 17:00 Interpretation: sinus audra hr [address] elevation qrs 110 qtc 413 Discharge Plan Discharge Patient Disposition: Home Clinical Impression: Chest pain Condition: Stable Prescriptions: No Action mirtazapine [Remeron] 15 mg tablet 7.5 mg PO .HS Qty: 15 1RF Rx Instructions: take 1/2 tablet daily at bedtime Vraylar 1.5 mg capsule 1.5 mg PO DAILY 30 Days Qty: 30 3RF hydroxyzine pamoate 50 mg capsule 50 mg PO BID PRN (Reason: Anxiety) trazodone 100 mg tablet 100 mg PO QPM PRN (Reason: Sleep) dicyclomine 20 mg tablet 20 mg PO TID naproxen 500 mg tablet 500 mg PO BID metoprolol tartrate 25 mg tablet 25 mg PO BID Vraylar 4.5 mg capsule 4.5 mg PO QPM oxcarbazepine [Trileptal] 150 mg tablet 300 mg PO BID Discharge Orders: Discharge ED (Routine); Ordered 07/11/24 Ordered By: Beto cMleod Referrals: Suzanne Espinoza FNP [Primary Care Provider] - 4-7 days Discharge Diet: Advance as tolerated Discharge Activity: Resume usual activity Patient Instructions: Chest Pain (ED) Activity Restrictions/Additional Instructions: Patient was seen in ER and evaluated for chest pain today. Patient's lab work was essentially benign, patient was deemed healthy and fit for confinement. Patient be discharged back to the [facility] [facility]. Coding Level of Care Code ED Glycerin Supervisor for Chg Fwd Documented by User: Beto Mcleod DO 07/11/24 20:14 HPI - Chest Pain 2 General: Chief Complaint: Chest Pain Stated Complaint: cp Time Seen by Provider: 07/11/24 14:50 Related Data Home Medications Medication Instructions Recorded Confirmed cariprazine 4.5 mg capsule 4.5 mg PO QPM 07/11/24 07/11/24 (Vraylar) dicyclomine 20 mg tablet 20 mg PO TID 07/11/24 07/11/24 hydroxyzine pamoate 50 mg capsule 50 mg PO BID PRN Anxiety 07/11/24 07/11/24 metoprolol tartrate 25 mg tablet 25 mg PO BID 07/11/24 07/11/24 naproxen 500 mg tablet 500 mg PO BID 07/11/24 07/11/24 oxcarbazepine 150 mg tablet 300 mg PO BID 07/11/24 07/11/24 (Trileptal) trazodone 100 mg tablet 100 mg PO QPM PRN Sleep 07/11/24 07/11/24 Previous Rx's Medication Instructions Recorded cariprazine 1.5 mg capsule 1.5 mg PO DAILY 30 days #30 caps 12/06/20 (Vraylar) mirtazapine 15 mg tablet (Remeron) 7.5 mg (1/2 x 15 mg) PO .HS #15 12/06/20 tabs Allergies Allergy/AdvReac Type Severity Reaction Status Date / Time venom-wasp Allergy Severe shock and Verified 07/10/24 18:45 air shuts off avocado Allergy Unknown unknown Verified 07/10/24 18:45 strawberry Allergy Unknown unknown Verified 07/10/24 18:45 PFSH ED 2 PFSH: Medical History Methamphetamine abuse MDD (major depressive disorder) Atypical chest pain Chronic back pain Hypertension Bipolar disorder 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 Chronic post-traumatic stress disorder (PTSD) Surgical History History of tonsillectomy History of umbilical hernia repair History of left heart catheterization July 2019 in [place] Family History Other Cancer Dementia Diabetes Heart disease Hypertension Stroke Social History Smoking and tobacco/nicotine status: current some day tobacco/nicotine user cigarettes [ Other cigarette details: 1-2 per month] Quit status (tobacco/nicotine): not considering quitting Second hand smoke exposure: Yes Alcohol intake: current Alcohol intake frequency: 0-2 Drinks per Day Alcohol type: beer Substance/Drug Use: former Date of last use: 07/2020 Adopted: Yes (Man that he calls his father adopted him when he was 6 years old) Caregiver/support person: No Lives independently: Yes Household members: significant other Housing: Other Details: [address] [facility] Marital status: Number of children: 1 Number of grandchildren: 0 Highest education level completed: Associate Degree: Occupational, Technical, Vocational Program Education level details: Building trades service: No Current occupational status: employed 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) Pets and animals: Yes Pets & animals: cat(s) and dog(s) Leisure activites: fishing and other Leisure activities details: watch movies Sexually active: Yes Do you think of yourself as: Straight/Heterosexual Current gender identity: Male Analia/Sabianism: Spiritism Special analia needs: No Agree to transfusion: Yes Course 2 Vital Signs: Vital signs: Vital Signs Temperature 97.5 F L 07/11/24 14:50 Pulse Rate 66 07/11/24 19:45 Respiratory Rate 16 07/11/24 19:45 Blood Pressure 113/70 07/11/24 19:45 Pulse Oximetry 97 07/11/24 19:45 Oxygen Delivery Me thod Room Air 07/11/24 18:36 MDM - Chest Pain Medical Decision Making Patient presents for chest pain his initial troponin here is negative he has no signs of pulmonary embolism or dissection patient is pending his 2-hour troponin if normal likely be able to discharge back to [facility] care turned over to Dr. Mcleod Care transferred over to myself at shift change, waiting on 2-hour troponin, 2- hour troponin come back 6, 1 hour troponin was 6, delta is 0. Patient be discharged back to [facility]. Lab Data 07/11/24 16:21 07/11/24 16:21 Radiology Impressions Chest X-Ray 07/11/24 14:51 IMPRESSION: 1. Normal chest. Laboratory Results WBC 5.08 10^3/uL (3.29-11.43) 07/11/24 16:21 RBC 4.81 10^6/uL (3.85-5.65) 07/11/24 16:21 Hgb 13.60 g/dL (11.27-16.99) 07/11/24 16:21 Hct 41.1 % (37-53) 07/11/24 16:21 MCV 85.4 fl (82-101) 07/11/24 16:21 MCH 28.3 pg (27-33) 07/11/24 16:21 MCHC 33.1 g/dL (30-55) 07/11/24 16:21 RDW 11.7 % (12.1-15.1) L 07/11/24 16:21 Plt Count 258 10^3/cmm (157-399) 07/11/24 16:21 MPV 8.9 fL (7.4-10.4) 07/11/24 16:21 Neut % (Auto) 58.0 % 07/11/24 16:21 Lymph % (Auto) 31.9 % 07/11/24 16:21 [place] % (Auto) 7.7 % 07/11/24 16:21 Eos % (Auto) 1.6 % 07/11/24 16:21 Baso % (Auto) 0.6 % 07/11/24 16:21 Neut # (Auto) 2.95 10^3/uL (1.8-7.7) 07/11/24 16:21 Lymph # (Auto) 1.6 10^3/uL (0.8-4.8) 07/11/24 16:21 [place] # (Auto) 0.4 10^3/uL (0.2-0.9) 07/11/24 16:21 Eos # (Auto) 0.1 10^3/uL (0.0-0.8) 07/11/24 16:21 Baso # (Auto) 0.0 10^3/uL (0.0-0.1) 07/11/24 16:21 Nucleated RBC % (auto) 0 % 07/11/24 16:21 Nucleated RBCs # 0.0 /100WBC 07/11/24 16:21 Sodium 140 mmol/L (136-145) 07/11/24 16:21 Potassium 4.9 mmol/L (3.5-5.1) 07/11/24 16:21 Chloride 106 mmol/L (98-107) 07/11/24 16:21 Carbon Dioxide 27 mmol/L (22-29) 07/11/24 16:21 Anion Gap 11.9 (5-19) 07/11/24 16:21 BUN 19 mg/dL (6-20) 07/11/24 16:21 Creatinine 0.9 mg/dL (0.7-1.2) 07/11/24 16:21 GFR Calculation 89.0 mL/min (90-130) L 07/11/24 16:21 Glucose 92 mg/dL (65-115) 07/11/24 16:21 Calculated Osmolality 292 mOsm/kg (285-295) 07/11/24 16:21 Calcium 9.2 mg/dL (8.5-10.5) 07/11/24 16:21 Total Bilirubin 0.3 mg/dL (0.15-1.2) 07/11/24 16:21 AST 15 U/L (0-40) 07/11/24 16:21 ALT 14 U/L (0-41) 07/11/24 16:21 Alkaline Phosphatase 84 U/L (40-130) 07/11/24 16:21 Troponin T Baseline < 6 ng/L (0-15) 07/11/24 16:21 Troponin T 120 Minute 6.00 ng/L (0-15) 07/11/24 18:06 Delta Troponin T 0.75988 ABS# (0-10) 07/11/24 18:06 Total Protein 5.9 g/dL (6.6-8.7) L 07/11/24 16:21 Albumin 4.1 g/dL (3.5-5.2) 07/11/24 16:21 Globulin 1.8 g/dL (1.3-4.6) 07/11/24 16:21 Lipase 26 U/L (13-60) 07/11/24 16:21 Discharge Plan Discharge Patient Disposition: Home Clinical Impression: Chest pain Condition: Stable Prescriptions: No Action mirtazapine [Remeron] 15 mg tablet 7.5 mg PO .HS Qty: 15 1RF Rx Instructions: take 1/2 tablet daily at bedtime Vraylar 1.5 mg capsule 1.5 mg PO DAILY 30 Days Qty: 30 3RF hydroxyzine pamoate 50 mg capsule 50 mg PO BID PRN (Reason: Anxiety) trazodone 100 mg tablet 100 mg PO QPM PRN (Reason: Sleep) dicyclomine 20 mg tablet 20 mg PO TID naproxen 500 mg tablet 500 mg PO BID metoprolol tartrate 25 mg tablet 25 mg PO BID Vraylar 4.5 mg capsule 4.5 mg PO QPM oxcarbazepine [Trileptal] 150 mg tablet 300 mg PO BID Discharge Orders: Discharge ED (Routine); Ordered 07/11/24 Ordered By: Beto Mcleod Referrals: Suzanne Espinoza FNP [Primary Care Provider] - 4-7 days Discharge Diet: Advance as tolerated Discharge Activity: Resume usual activity Patient Instructions: Chest Pain (ED) Activity Restrictions/Additional Instructions: Patient was seen in ER and evaluated for chest pain today. Patient's lab work was essentially benign, patient was deemed healthy and fit for confinement. Patient be discharged back to the [place] [facility]. Coding Level of Care Code ED Glycerin Supervisor for John Jacobs
--- NOTE | 2024-07-11 15:28 | PC.PHAR ---
Addendum entered by Inna Espinoza 07/11/24 16:14: most recent scripts from last filled pharmacies march was last filled dates keeping them on file because i cannot get any other sort of verification. patient doesnt know, certified flex endoscope reprocessor sitting with him doesnt know and cant get ahold of pharmacy Original Note: patient states hes been in custody for a long time and got expedited here so this police dept doesnt have a good list and where he used to get his meds through the [facility] in [facility] and [facility] i tried calling both pharmacies to get a list and they are closed i left voicemail. Will keep trying..
[2024-07-11 16:29] LABS: Basophils % 0.6 %; Eosinophils # 0.1 10^3/uL (0.0-0.8); Eosinophils % 1.6 %; Hematocrit 41.1 % (37-53); Lymphocytes # 1.6 10^3/uL (0.8-4.8); Lymphocytes % 31.9 %; Mean Corpuscular HGB Conc 33.1 g/dL (30-55); Mean Corpuscular Hemoglobin 28.3 pg (27-33); Mean Corpuscular Volume 85.4 fl (82-101); Mean Platelet Volume 8.9 fL (7.4-10.4); Monocytes # 0.4 10^3/uL (0.2-0.9); Monocytes % 7.7 %; Neutrophils # 2.95 10^3/uL (1.8-7.7); Nucleated Red Blood Cells % 0 %; Platelet Count 258 10^3/cmm (157-399); Red Blood Count 4.81 10^6/uL (3.85-5.65); Red Cell Distribution Width 11.7 % (12.1-15.1); White Blood Count 5.08 10^3/uL (3.29-11.43)
[2024-07-11] MEDS: morphine 4 mg/mL SDV 1 mL IM (16:45)
[2024-07-11 16:59] LABS: Troponin(5th) Baseline < 6 ng/L (0-15)
--- NOTE | 2024-07-11 17:00 | ECG_ITS ---
[facility]: [facility]11 Pat Name: German Galvan Department: Room: Gender: Male Pastry Decorator: : 1975 Requested By: Enoc Dumont Order Number: [id number] Florentino MD: Roni Donohue M.D. Measurements Intervals Fischer Rate: 57 P: 71 MI: 112 QRS: 82 QRSD: 110 T: 78 QT: 418 QTc: 410 Interpretive Statements SINUS BRADYCARDIA WITH SINUS ARRHYTHMIA WITH SHORT MI INTERVAL Compared to ECG 07/11/2024 14:54:08 Short MI interval now present Electronically Signed On 07-11-2024 22:05:39 DECISION SUPPORT MANAGER by Roni Donohue M.D. [email or web address]
[2024-07-11 17:01] LABS: Alanine Aminotransferase 14 U/L (0-41); Albumin Level 4.1 g/dL (3.5-5.2); Alkaline Phosphatase 84 U/L (40-130); Anion Gap 11.9 (5-19); Aspartate Amino Transferase 15 U/L (0-40); Blood Urea Nitrogen 19 mg/dL (6-20); Calcium 9.2 mg/dL (8.5-10.5); Carbon Dioxide 27 mmol/L (22-29); Chloride 106 mmol/L (98-107); Creatinine Clr Calc Pharmacy 97.4841; Globulin 1.8 g/dL (1.3-4.6); Glucose 92 mg/dL (65-115); Lipase 26 U/L (13-60); Osmolality Calculated 292 mOsm/kg (285-295); Potassium 4.9 mmol/L (3.5-5.1); Sodium 140 mmol/L (136-145); Total Bilirubin 0.3 mg/dL (0.15-1.2); Total Protein 5.9 g/dL (6.6-8.7)
[2024-07-11 19:10] LABS: Troponin 5 2HR Delta 0.00001 ABS# (0-10)
[2024-07-11] MEDS: ketorolac 30 mg/mL INJ IVP (19:53)
== END 2024-07-11 20:21 | disposition home or self-care (01) ==
PROVIDERS: Emergency Provider Emergency Medicine; PCP Nurse Practitioner Family
DX: R07.9 Chest pain, unspecified (principal); I10 Essential (primary) hypertension
CPT/HCPCS: 36415; 71045; 80053; 83690; 84484; 85025; 93005; 96372; 96374; 99285; J1885; J2270